=== PATIENT | female | born 1945 | race Caucasian/White ===

== ENCOUNTER 2022-10-06 13:18 | Outpatient (CLI) | payer MEDICARE, SELFPAY | END 2022-10-06 13:19 | disposition home or self-care (01) | PROVIDERS: PCP Family Medicine; Visit Provider Family Medicine | DX: Z00.00 Encounter for general adult medical examination without abnormal findings (principal); I10 Essential (primary) hypertension; E21.3 Hyperparathyroidism, unspecified; E04.1 Nontoxic single thyroid nodule; H81.09 Meniere's disease, unspecified ear; Z13.6 Encounter for screening for cardiovascular disorders; Z11.59 Encounter for screening for other viral diseases | CPT/HCPCS: 80053; 80061; 82310; 82330; 83970; 84443; 86803 ==

== ENCOUNTER 2022-12-24 09:58 | Outpatient (CLI) | payer MEDICARE, SELFPAY ==
--- NOTE | 2022-12-24 10:15 | CRLHL7_ITS ---
For Patients: As a result of the Cures Act, medical imaging exams and procedure reports are released immediately into your electronic medical record. You may view this report before your referring provider. If you have questions, please contact your health care provider. BILATERAL SCREENING MAMMOGRAM WITH COMPUTER-AIDED DETECTION AND TOMOSYNTHESIS TECHNIQUE: CC and MLO views were obtained. These mammographic images have been obtained using full-field digital technique. These mammographic images were interpreted with the benefit of computer-aided detection. Breast tomosynthesis was used in this interpretation. COMPARISON FILM: 07/10/21, 07/03/20, 12/30/18. FINDINGS: There are scattered areas of fibroglandular density. IMPRESSION: There is no radiographic evidence for malignancy. ASSESSMENT: BI-RADS Category 1: Negative RECOMMENDATION: Routine screening mammogram in 1 year. A lay language report of this examination will be provided to the patient. JUVENAL EPSTEIN M.D. Diagnostic Radiologist [email or web address] Transcribed: 12/25/2022, 6:[address]/Dictated by: Juvenal Epstein MD @ 12/25/2022 1:17:00 PM (Electronically Signed)
== END 2022-12-24 09:59 | disposition home or self-care (01) ==
PROVIDERS: PCP Family Medicine; Visit Provider Family Medicine
DX: Z12.31 Encounter for screening mammogram for malignant neoplasm of breast (principal)
CPT/HCPCS: 77063; 77067

== ENCOUNTER 2024-10-05 13:47 | Outpatient (CLI) | payer MEDICARE, SELFPAY ==
--- NOTE | 2024-10-05 14:00 | CRLHL7_ITS ---
For Patients: As a result of the Century Cures Act, medical imaging exams and procedure reports are released immediately into your electronic medical record. You may view this report before your referring provider. If you have questions, please contact your health care provider. DXA BONE MINERAL DENSITY STUDY Current height (in): 64. Weight (lb): 190. Menopause age: 50. Ethnicity: White. 1. Have you had a previous hip or vertebral fracture? No. 2. Have you had any fractures during your adult life which did not result from significant trauma (e.g., auto accident)? No. 3. Did either of your parents have a hip fracture? No. 4. Do you smoke? No. 5. Have you ever taken Glucocorticoids? No. 6. Do you have rheumatoid arthritis? No. 7. Do you have secondary osteoporosis? No. 8. Do you drink 3 or more alcoholic drinks per day? No. 9. Are you being treated for osteoporosis? No. 10. Have you ever taken any of the following medications: Actonel, Evista, Fosamax, Miacalcin, Reclast, Boniva, Forteo, HRT (i.e. estrogen/hormone therapy), Protelos, Prolia, Vitamin D, Calcium, other ??? please specify. ANSWER: Yes, Vitamin D and Calcium. 11. Do you have any of the following medical conditions: Anorexia or bulimia, asthma or emphysema, end stage renal disease, hyperparathyroidism, any seizure disorders, cancer, inflammatory bowel diseases, hysterectomy, other ??? please specify. ANSWER: No. 12. What was your maximum height (inches)? 65. 13. Do you perform weight bearing exercise regularly? No. 14. Do you regularly consume dairy products? Yes. 15. Do you drink caffeinated beverages? No. 16. At what age did your period start? 10. 17. Are you premenopausal? No. 18. How many full term pregnancies have you had? 6. 19. Have you ever missed your period for more than 6 months in a row (not including or menopause)? No. TECHNIQUE: Bone mineral density study was performed using the [employer]. FINDINGS: The results of the study expressed as bone mineral density (BMD) are as follows: Lumbar spine L1 to L4: BMD: 1.104 g/cm2. T-score: 0.5. Z-score: 3.2. Neck Left: BMD: 0.765 g/cm2. T-score: -0.8. Z-score: 1.6. Right: BMD: 0.898 g/cm2. T-score: 0.4. Z-score: 2.8. Total Left: BMD: 1.122 g/cm2. T-score: 1.5. Z-score: 3.6. Right: BMD: 1.033 g/cm2. T-score: 0.7. Z-score: 2.9. IMPRESSION: Normal bone density. COMPARISON: Compared with scan of 07/10/2021, the bone mineral density has increased by 8.7 percent at the spine and increased by 3.1 percent at the hip. Compared with scan of 12/30/2018, the bone mineral density has decreased by 1.4 percent at the spine and increased by 5.1 percent at the hip. Tatiana Subramanian M.D. Diagnostic Radiologist [email or web address]/[email or web address] DW/Dictated by: Tatiana Subramanian MD @ 10/10/2024 7:04:00 AM (Electronically Signed)
== END 2024-10-05 13:48 | disposition home or self-care (01) ==
LOC: RAD 13:49
PROVIDERS: PCP Pediatrics; Visit Provider Pediatrics
DX: Z78.0 Asymptomatic menopausal state (principal)
CPT/HCPCS: 77080